=== PATIENT | female | born 1960 | race Caucasian/White ===

== ENCOUNTER 2018-07-01 10:20 | Emergency (ER) | payer OTHER ==
[2018-07-01] MEDS ORDERED: Ringers Lactate 2,000 ML IV ONE (10:55)
[2018-07-01] MEDS ORDERED: ACETAMINOPHEN 500 MG TAB ONE ×2 (11:46→13:22)
[2018-07-01 11:58] LABS: Absolute Lymphocytes (CBC) 1.4 K/uL (0.7-4.9); Absolute Monocytes 1.2 K/uL (0.1-1.3); Absolute Neutrophil 8.9 K/uL (1.8-8.0); Basophils % 0.3 % (0-1.3); Eosinophils % 0.2 % (0-4.4); Hematocrit 39.8 % (36.0-45.0); Lymphocytes % 11.9 % (15.3-44.8); MCH 31.7 pg (27.0-35.0); MCV 89.6 fL (80-100); MPV 9.6 fL (7.6-11.3); Monocytes % 10.6 % (3.3-12.3); RBC Red Blood Cell Count 4.45 M/uL (3.86-4.86)
[2018-07-01 12:17] LABS: Urine Bacteria >50 /HPF (<20); Urine Culture Reflex Order NOT NEEDED
[2018-07-01 12:17] LABS: Albumin 4.4 g/dL (3.4-5.0); Bilirubin Direct 0.2 mg/dL (0-0.2); Bilirubin Total 0.7 mg/dL (0.2-1.0); Potassium 3.3 mmol/L (3.5-5.1)
--- NOTE | 2018-07-01 12:52 | RAD REPORT ---
EXAM DESCRIPTION: CT - Abdomen Pelvis W Contrast - 07/01/2018 12:34 pm CLINICAL HISTORY: Abdominal pain with dysuria COMPARISON: 2013 TECHNIQUE: Computed axial tomography of the abdomen pelvis was obtained. 100 cc Isovue-300 was admin istered intravenously. Oral contrast was not requested which limits evaluation of bowel. All CT scans are performed using dose optimization technique as appropriate and may include automated exposure control or mA/KV adjustment according to patient size. FINDINGS: A couple tiny low-density lesions within the liver probably represent cysts Spleen, pancreas, adrenal and left kidney appear unremarkable. Small low-density areas within the right kidney extend to the periphery. An abscess is not noted. Enh ancement of the wall of the right ureter is seen. There is no evidence of diverticulitis. Fluid is present within nondilated bowel. 3 centimeter lipoma to the right of midline within the anterior subcutaneous tissues mid abdomen is u nchanged. 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
[2018-07-01 13:08] LABS: Urine Blood 2+ (NEG); Urine Glucose NEGATIVE (NEG); Urine Protein 2+ (NEG); Urine Specific Gravity 1.015 (1.005-1.030)
[2018-07-01] MEDS ORDERED: CEFTRIAXONE/SWI 1gm 2 GM/20 ML SYR ONE (13:22)
--- NOTE | 2018-07-01 14:14 | ER ---
Nurse's Notes [facility] Name: Brionna Kwan Age: 57 yrs Sex: Female : 1960 Arrival Date: 07/01/2018 Time: 10:23 Bed 14 Private MD: Diagnosis: Urinary tract infection, site not specified;Fever, unspecified;Pyelonephritis Presentation: 07/01 10:26 Presenting complaint: Patient states: Right mid back pain with foul smelling urine for aj 3 days. Patient reports fever today. Sent from Urgent Care to R/O infection. Transition of care: patient was not received from another setting of care. Onset of symptoms was June 28, 2018. Risk Assessment: Do you want to hurt yourself or someone else? Patient reports no desire to harm self or others. Initial Sepsis Screen: Does the patient meet any 2 criteria? No. Patient's initial sepsis screen is negative. Does the patient have a suspected source of infection? No. Patient's initial sepsis screen is negative. Care prior to arrival: None. 10:26 Method Of Arrival: Ambulatory aj 10:26 Acuity: ALFREDITO 3 aj Triage Assessment: 10:28 General: Appears in no apparent distress. comfortable, Behavior is calm, cooperative, aj appropriate for age. Pain: Complains of pain in right mid back Pain currently is 2 out of 10 on a pain scale. Neuro: Level of Consciousness is awake, alert, obeys commands, Oriented to person, place, time, situation, Appropriate for age. Respiratory: Airway is patent Respiratory effort is even, unlabored, Respiratory pattern is regular, symmetrical. : Reports foul smelling urine. Derm: Skin is intact, is healthy with good turgor, Skin is pink, warm \\T\\ dry. normal. Historical: - Allergies: 10:28 No Known Allergies; aj - Home Meds: 10:28 pravastatin oral oral [Active]; aspirin 81 mg Oral TbEC 1 tab once daily [Active]; aj - PMHx: 10:28 Hyperlipidemia; aj - PSHx: 10:30 Hysterectomy; Hernia repair; aj - Immunization history:: Adult Immunizations up to date. - Social history:: Smoking status: Patient/guardian denies using tobacco. - Ebola Screening: : Patient negative for fever greater than or equal to 101.5 degrees Fahrenheit, and additional compatible Ebola Virus Disease symptoms Patient denies exposure to infectious person Patient denies travel to an Ebola-affected area in the 21 days before illness onset No symptoms or risks identified at this time. Screenin:45 Abuse screen: Denies threats or abuse. Denies injuries from another. Nutritional jl7 screening: No deficits noted. Tuberculosis screening: No symptoms or risk factors identified. Fall Risk IV access (20 points). Assessment: 11:45 General: Appears in no apparent distress. uncomfortable, Behavior is calm, cooperative, jl7 appropriate for age. Pain: Complains of pain in "Galina achy all over.". Neuro: Level of Consciousness is awake, alert, obeys commands, Oriented to person, place, time, situation. Cardiovascular: Patient's skin is warm and dry. Respiratory: Airway is patent Respiratory effort is even, unlabored, Respiratory pattern is regular, symmetrical. GI: No signs and/or symptoms were reported involving the gastrointestinal system. : Reports urine odor Denies burning with urination, incontinence, pain urinary frequency. EENT: No signs and/or symptoms were reported regarding the EENT system. Derm: Skin is pink, warm \\T\\ dry. Musculoskeletal: No signs and/or symptoms reported regarding the musculoskeletal system. Vital Signs: 10:28 BP 110 / 79; Pulse 97; Resp 15; Temp 100.2; Pulse Ox 97% on R/A; Weight 58.97 kg; aj Height 5 ft. 5 in. (165.10 cm); 11:45 BP 116 / 73; Pulse 68; Resp 16 S; Pulse Ox 99% on R/A; jl7 12:45 BP 116 / 81; Pulse 79; Resp 16 S; Pulse Ox 100% on R/A; jl7 13:58 BP 121 / 78; Pulse 73; Resp 16; Temp 97.9(O); Pulse Ox 97% on R/A; mh5 14:45 BP 121 / 81; Pulse 87; Resp 16 S; Pulse Ox 99% on R/A; jl7 10:28 Body Mass Index 21.63 (58.97 kg, 165.10 cm) ED Course: 10:23 Patient arrived in ED. mr 10:27 Triage completed. aj 10:28 Arm band placed on left wrist. Patient placed in an exam room. aj 10:45 [employer] PA is PHCP. [facility] 10:45 Ge Sheets MD is Attending Physician. [facility] 11:22 Initial lab(s) drawn, by hi, sent to lab. Inserted saline lock: 20 gauge in right jl7 forearm, using aseptic technique. Blood collected. 11:36 Renan Ronquillo, TRISH is Primary Nurse. jl 11:45 Patient has correct armband on for positive identification. Pulse ox on. NIBP on. Warm jl7 blanket given. 12:06 Radiology exam delayed due to lab results not completed at this time. (BUN/Creatinine). sj 12:[address] via wheelchair. cw1 12:30 CT completed. Patient moved back from CT. cw1 12:35 CT Abd/Pelvis - W/Contrast In Process Unspecified. EDMS 14:47 No provider procedures requiring assistance completed. IV discontinued, intact, jl7 bleeding controlled, No redness/swelling at site. Pressure dressing applied. Administered Medications: 11:36 Drug: Lactated Ringers Solution 1800 ml Route: IV; Rate: 2000 TKO; Site: right forearm; jl7 13:30 Follow up: IV Status: Completed infusion jl7 12:22 Drug: Tylenol 1000 mg Route: PO; aa5 13:45 Follow up: Response: Temperature is decreased jl7 13:40 Drug: Rocephin - (cefTRIAXone) 2 grams Route: IVPB; Infused Over: 30 mins; Site: right jl7 forearm; 13:45 Follow up: Response: No adverse reaction; IV Status: Completed infusion jl7 Outcome: 14:13 Discharge ordered by . [facility] 14:47 Discharged to home ambulatory. [facility] 14:47 Condition: stable 14:47 Discharge instructions given to patient, family, Instructed on discharge instructions, follow up and referral plans. medication usage, Demonstrated understanding of instructions, follow-up care, medications, Prescriptions given X 2. 14:48 Patient left the ED. jl7 Addendum: 07/04/2018 09:44 Addendum: Culture Results: Positive urine culture. No further action required. Bacteria s s sensitive to prescribed antibiotic. 07/08/2018 16:03 Addendum: Other attempted to call patient for positive blood culture to follow up, s s wrong number on file. Signatures: Dispatcher [employer] EDMS Salima Ferguson RN RN aj Mickail, Joel, PA PA jmm Rivera, Maria mr Hsu, Caty Arias RN RN aa5 Sara Gardner RN RN Luann Adkins 1 [facility] Renan Ronquillo RN RN jl7 Corrections: (The following items were deleted from the chart) 07/01 10:30 10:28 PSHx: None; aj bobby
--- NOTE | 2018-07-01 14:14 | EDPHYS ---
Physician Documentation [facility] Name: Brionna Kwan Age: 57 yrs Sex: Female : 1960 Arrival Date: 07/01/2018 Time: 10:23 Bed 14 Private MD: ED Physician Ge Sheets HPI: 07/01 11:15 This 57 yrs old Female presents to ER via Ambulatory with complaints of Fever.jmm 11:15 The patient reports fever, not measured (subjective). Onset: The symptoms/episode jmm began/occurred gradually, 3 day(s) ago. Modifying factors: there are no obvious modifying factors. Associated signs and symptoms: Pertinent positives: backache, chills, headache. The patient has not experienced similar symptoms in the past. This is a 57 year old female with a history of HLP that presents to the ED with 3 days of back pain, body aches, headache. Patient denies vomiting, denies abdominal pain, denies cough, denies shortness of breath. . Historical: - Allergies: 10:28 No Known Allergies; aj - Home Meds: 10:28 pravastatin oral oral [Active]; aspirin 81 mg Oral TbEC 1 tab once daily [Active]; aj - PMHx: 10:28 Hyperlipidemia; - PSHx: 10:30 Hysterectomy; Hernia repair; aj - Immunization history:: Adult Immunizations up to date. - Social history:: Smoking status: Patient/guardian denies using tobacco. - Ebola Screening: : Patient negative for fever greater than or equal to 101.5 degrees Fahrenheit, and additional compatible Ebola Virus Disease symptoms Patient denies exposure to infectious person Patient denies travel to an Ebola-affected area in the 21 days before illness onset No symptoms or risks identified at this time. ROS: 11:15 Eyes: Negative for injury, pain, redness, and discharge. jmm 11:15 Constitutional: Positive for body aches, chills, fever. 11:22 Skin: Negative for injury, rash, and discoloration, Neuro: Negative for headache, jmm weakness, numbness, tingling, and seizure. 11:22 Abdomen/GI: Negative for abdominal pain, nausea and vomiting, diarrhea. 11:22 Back: Positive for pain at rest. 11:22 MS/extremity: Positive for pain. 11:22 All other systems are negative. Exam: 11:22 Head/Face: atraumatic. Chest/axilla: Normal chest wall appearance and motion. lin Cardiovascular: Regular rate and rhythm. No edema appreciated Respiratory: Normal respirations, no respiratory distress appreciated Abdomen/GI: Non distended, soft 11:22 Skin: General appearance color normal MS/ Extremity: Moves all extremities, no obvious deformities appreciated, no edema noted to the lower extremities Neuro: Awake and alert, normal gait Psych: Behavior is normal, Mood is normal, Patient is cooperative and pleasant 11:22 Constitutional: The patient appears in no acute distress, alert, awake. 11:22 Back: CVA tenderness, that is mild, is noted bilaterally. Vital Signs: 10:28 BP 110 / 79; Pulse 97; Resp 15; Temp 100.2; Pulse Ox 97% on R/A; Weight 58.97 kg; aj Height 5 ft. 5 in. (165.10 cm); 11:45 BP 116 / 73; Pulse 68; Resp 16 S; Pulse Ox 99% on R/A; jl7 12:45 BP 116 / 81; Pulse 79; Resp 16 S; Pulse Ox 100% on R/A; jl7 13:58 BP 121 / 78; Pulse 73; Resp 16; Temp 97.9(O); Pulse Ox 97% on R/A; mh5 14:45 BP 121 / 81; Pulse 87; Resp 16 S; Pulse Ox 99% on R/A; jl7 10:28 Body Mass Index 21.63 (58.97 kg, 165.10 cm) MDM: 11:15 Patient medically screened. [facility] 14:12 Data reviewed: vital signs, nurses notes. Counseling: I had a detailed discussion with severiano the patient and/or guardian regarding: the historical points, exam findings, and any diagnostic results supporting the discharge/admit diagnosis, radiology results, the need for outpatient follow up, to return to the emergency department if symptoms worsen or persist or if there are any questions or concerns that arise at home. Response to treatment: the patient's symptoms have markedly improved after treatment. 07/01 10:47 Order name: Amylase, Serum [facility] 07/01 10:47 Order name: Basic Metabolic Panel [facility] 07/01 10:47 Order name: CBC with Diff; Complete Time: 12:29 [facility] 07/01 10:47 Order name: Creatinine for Radiology; Complete Time: 12:29 [facility] 07/01 10:47 Order name: Hepatic Function [facility] 07/01 10:47 Order name: Lipase [facility] 07/01 10:47 Order name: Urine Microscopic Only; Complete Time: 12:29 [facility] 07/01 10:47 Order name: Urine Culture [facility] 07/01 10:47 Order name: Blood Culture Adult (2) [facility] 07/01 10:47 Order name: Lactate; Complete Time: 12:47 [facility] 07/01 10:47 Order name: Procalcitonin; Complete Time: 12:47 [facility] 07/01 10:48 Order name: Amylase Level; Complete Time: 12:29 [facility] 07/01 10:48 Order name: Basic Metabolic Panel; Complete Time: 12:29 [facility] 07/01 10:48 Order name: Liver (Hepatic) Function; Complete Time: 12:29 [facility] 07/01 10:47 Order name: Urine Test (obtain specimen); Complete Time: 11:37 [facility] 07/01 10:47 Order name: IV Saline Lock; Complete Time: 11:37 [facility] 07/01 10:47 Order name: Labs collected and sent; Complete Time: 11:37 [facility] 07/01 10:47 Order name: Urine Dipstick-Ancillary (obtain specimen); Complete Time: 11:37 [facility] 07/01 10:48 Order name: Lipase; Complete Time: 12:29 [facility] 07/01 11:38 Order name: CT Abd/Pelvis - W/Contrast; Complete Time: 12:53 [facility] 07/01 11:41 Order name: Urine Dipstick--Ancillary (enter results); Complete Time: 14:06 ag 07/01 11:41 Order name: Urine --Ancillary (enter results); Complete Time: 14:06 ag 07/01 12:03 Order name: Labs - recollect needed; Complete Time: 12:22 ag Administered Medications: 11:36 Drug: Lactated Ringers Solution 1800 ml Route: IV; Rate: 2000 TKO; Site: right forearm; jl7 13:30 Follow up: IV Status: Completed infusion jl7 12:22 Drug: Tylenol 1000 mg Route: PO; aa5 13:45 Follow up: Response: Temperature is decreased jl7 13:40 Drug: Rocephin - (cefTRIAXone) 2 grams Route: IVPB; Infused Over: 30 mins; Site: right jl7 forearm; 13:45 Follow up: Response: No adverse reaction; IV Status: Completed infusion jl7 Disposition: 07/01/18 14:13 Discharged to Home. Impression: Urinary tract infection, site not specified, Fever, unspecified, Pyelonephritis. - Condition is Stable. - Discharge Instructions: Pyelonephritis, Adult, Urinary Tract Infection, Adult. - Prescriptions for Zofran ODT 4 mg Oral tablet,disintegrating - place 1 tablet by TRANSLINGUAL route every 4-6 hours; 20 tablet. cefpodoxime 200 mg Oral Tablet - take 1 tablet by ORAL route every 12 hours for 10 days with food; 20 tablet. - Medication Reconciliation Form, Thank You Letter, Antibiotic Education, Prescription Opioid Use, Work release form form. - Follow up: Private Physician; When: 2 - 3 days; Reason: Recheck today's complaints, Continuance of care, Re-evaluation by your physician. Addendum: 07/03/2018 08:05 Co-signature as Attending Physician, Ge Sheets MD I agree with the assessment and w a plan of care. Signatures: Dispatcher [employer] Salima Mar RN RN aj Mickail, Joel, PA PA jmm Calderon, Audri, RN RN aa5 Marge Mejía Jahala, RN RN jl7 Ge Sheets MD MD wa Corrections: (The following items were deleted from the chart) 07/01 10:30 10:28 PSHx: None; bobby rosales 14:48 14:13 07/01/2018 14:13 Discharged to Home. Impression: Urinary tract infection, site jl7 not specified; Fever, unspecified; Pyelonephritis. Condition is Stable. Forms are Medication Reconciliation Form, Thank You Letter, Antibiotic Education, Prescription Opioid Use. Follow up: Private Physician; When: 2 - 3 days; Reason: Recheck today's complaints, Continuance of care, Re-evaluation by your physician. severiano
== END 2018-07-01 14:48 | disposition home or self-care (01) ==
LOC: ER 10:20
DX: N39.0 Urinary tract infection, site not specified (principal); N12 Tubulo-interstitial nephritis, not specified as acute or chronic
CPT/HCPCS: 36415; 74177; 80048; 80076; 81003; 81015; 81025; 82150; 83605; 83690; 84145; 85025; 87040; 87077; 87086; 87088; 87186; 87205; 96374; 99284; J0696; Q9967